=== PATIENT | female | born 1975 ===

== ENCOUNTER 2021-01-22 08:01 | Day surgery (SDC) | payer OTHER ==
[~2021-01-22] VITALS: Ht 154.9 cm; Wt 61.6 kg
[2021-01-22] MEDS ORDERED: MICROGESTIN FE1 TA1 PO (08:15)
[2021-01-22] MEDS ORDERED: PROAIR HFA0.09 MG/AC IH (08:16)
[2021-01-22 08:21] VITALS: BP 130/98; PULSE 80; TEMP 96.8
[2021-01-22 09:30] VITALS: BP 123/74; PULSE 72
--- NOTE | 2021-01-22 09:30 | NUR ---
Pt to [facility] via cart from ENDO. Pt drowsy, but awake. Pt denies pain or nausea. Muffin, jello, and juice given per request. Will continue to monitor. Call light within reach.
[2021-01-22 09:45] VITALS: BP 111/85; PULSE 68
--- NOTE | 2021-01-22 09:45 | NUR ---
into speak with pt and . Call light within reach.
[2021-01-22 10:00] VITALS: BP 123/85; PULSE 70
--- NOTE | 2021-01-22 10:00 | NUR ---
Discharge instructions reviewed. Pt voices understanding. IV site discontinued with all parts intact. Pt up to dress. Call light within reach.
--- NOTE | 2021-01-22 10:12 | NUR ---
Pt escorted to private car via wheel chair. Pt accompanied home by her .
== END 2021-01-22 10:13 | disposition home or self-care (01) ==
LOC: SDCO 08:01
DX: K21.00 Gastro-esophageal reflux disease with esophagitis, without bleeding (principal); D12.0 Benign neoplasm of cecum; K58.9 Irritable bowel syndrome, unspecified; K29.30 Chronic superficial gastritis without bleeding; I10 Essential (primary) hypertension; J45.909 Unspecified asthma, uncomplicated; Z79.899 Other long term (current) drug therapy; Z20.822 Contact with and (suspected) exposure to COVID-19
CPT/HCPCS: J2704; J7120